=== PATIENT | female | born 1935 | race Caucasian/White ===

== ENCOUNTER 2022-12-27 13:31 | Outpatient (REF) | payer MEDICARE, SELFPAY | END 2022-12-27 13:32 | disposition home or self-care (01) | LOC: HO.LNP 13:31 | PROVIDERS: Visit Provider Internal Medicine Medical Oncology | DX: J34.0 Abscess, furuncle and carbuncle of nose (principal) | CPT/HCPCS: 87070; 87205 ==

== ENCOUNTER 2023-03-16 10:49 | Outpatient (REF) | payer MEDICARE, SELFPAY ==
[2023-03-16 17:57] LABS: Appearance Urine Turbid; Color Urine Yellow; Glucose Urine UA Negative (Negative); Leukocyte Esterase Urine Large (3+) (Negative); Nitrite Urine Negative (Negative); Specific Gravity - Urine <= 1.005 (1.005-1.025); UMIC TRIGGER UA YES; Urine Blood Large (3+) (Negative); Urine Ketones Negative (Negative); Urine Protein 100 (2+) mg/dL (Neg-Trace)
[2023-03-16 18:09] LABS: Bacteria Urine 2+ (None Seen); WBC Urine >50 /HPF (0-5)
== END 2023-03-16 10:50 | disposition home or self-care (01) ==
LOC: HO.LAB 10:49
PROVIDERS: PCP Internal Medicine Medical Oncology; Visit Provider Internal Medicine Medical Oncology
DX: N39.0 Urinary tract infection, site not specified (principal)
CPT/HCPCS: 81001; 87086; 87088; 87186